=== PATIENT | female | born 1970 | race Two or more races ===

== ENCOUNTER 2020-02-03 11:23 | Emergency (ER) | payer MEDICAID ==
[~2020-02-03] VITALS: Ht 157.5 cm; Wt 54.9 kg
[2020-02-03 11:41] VITALS: Ht 157.5 cm; Wt 54.9 kg
[2020-02-03 13:10] LABS: ALBUMIN 3.5 g/dL (3.4-5.0); ALKALINE PHOSPHATASE 145 U/L (46-116); ALT/SGPT 43 U/L (14-59); AST/SGOT 22 U/L (15-37); BILIRUBIN TOTAL 0.54 mg/dL (0.20-1.00); CALCIUM 9.3 mg/dL (8.5-10.1); CHLORIDE SERUM 99 mmol/L (98-107); CREATININE SERUM 0.8 mg/dL (0.6-1.0); GFR1 > 60 mL/min; PHOSPHOROUS 3.8 mg/dL (2.5-4.9); SODIUM SERUM 136 mmol/L (136-145); TOTAL PROTEIN, SERUM 7.2 g/dL (6.4-8.2)
[2020-02-03 13:20] LABS: GLUCOSE SERUM 490 mg/dL (74-106)
[2020-02-03 13:24] LABS: BASOPHIL % 0.3 % (0-2); PLATELET COUNT 154 x10^3mcL (130-400); RED CELL DISTRIBUTION WIDTH 13.6 % (11.5-14.5)
[2020-02-03 14:05] VITALS: BP 124/75
== END 2020-02-03 15:30 | disposition home or self-care (01) ==
LOC: ED 11:23
PROVIDERS: Emergency Medicine
DX: E11.65 Type 2 diabetes mellitus with hyperglycemia (principal)
CPT/HCPCS: 36600; 82962; J1815

== ENCOUNTER 2020-03-10 10:42 | Emergency (ER) | payer MEDICAID ==
[~2020-03-10] VITALS: Ht 157.5 cm; Wt 54.4 kg
[2020-03-10 11:14] VITALS: Ht 157.5 cm; Wt 54.4 kg
[2020-03-10 12:26] LABS: BASOPHIL % 0.6 % (0.2-1.3); PLATELET COUNT 169 x10^3mcL (179-408)
[2020-03-10 13:09] LABS: FREE T4 0.97 ng/dL (0.76-1.46); FREE THYROXINE INDEX 2.9 ug/dL (1.4-4.5); T4(THYROXINE) 8.6 ug/dL (4.7-13.3)
[2020-03-10 13:11] LABS: T3 TOTAL 0.87 ng/mL
[2020-03-10 13:36] LABS: ALBUMIN 3.7 g/dL (3.4-5.0); ALKALINE PHOSPHATASE 223 U/L (46-116); ALT/SGPT 58 U/L (14-59); AST/SGOT 27 U/L (15-37); BILIRUBIN TOTAL 0.39 mg/dL (0.20-1.00); CALCIUM 9.9 mg/dL (8.5-10.1); CARBON DIOXIDE 27.9 mmol/L (21-32); CHLORIDE SERUM 99 mmol/L (98-107); CREATININE SERUM 0.6 mg/dL (0.6-1.0); GFR1 > 60 mL/min; HDL CHOLESTEROL 56 mg/dL (40-60); LIPASE 157 IU/L (73-393); SODIUM SERUM 137 mmol/L (136-145); TOTAL PROTEIN, SERUM 7.5 g/dL (6.4-8.2); TRIGLYCERIDES 134 mg/dL (<150)
[2020-03-10 13:38] LABS: CHOLESTEROL 216 mg/dL (<200); CHOLESTEROL/HDL RATIO 3.9
[2020-03-10 13:39] LABS: GLUCOSE SERUM 463 mg/dL (74-106)
[2020-03-10 14:20] LABS: rbc morphology (normal/abnorm) NORMAL (NORMAL)
[2020-03-10 15:17] VITALS: BP 117/60
[2020-03-10 16:58] LABS: microscopic required? YES; urine erythrocyte NEGATIVE (NEGATIVE)
== END 2020-03-10 15:17 | disposition home or self-care (01) ==
LOC: ED 10:42
PROVIDERS: Specialist
DX: L23.9 Allergic contact dermatitis, unspecified cause (principal); E11.9 Type 2 diabetes mellitus without complications
CPT/HCPCS: 36600; 82962; 83880; 84439; J1815; J7030